=== PATIENT | male | born 1965 | race Caucasian/White ===

== ENCOUNTER 2021-10-09 21:56 | Emergency (ER) | payer OTHER, SELFPAY ==
--- NOTE | ~2021-10-09 | CT_ITS ---
EXAMINATION: CT brain wo con DATE: 10/10/2021 00:42 INDICATION: Confusion and drowsiness TECHNIQUE: Computed tomography (CT) of the head was performed without intravenous contrast. The dose- length product was 681.00 mGy-cm. Automated exposure control and iterative reconstruction technique w ere employed. COMPARISON: None FINDINGS: Brain parenchymal volume is normal for age. There are scattered mild periventricular and howard bcortical white matter changes, most likely related to small vessel ischemic disease (microangiopathy ). No ventriculomegaly or midline shift. Basilar cisterns are patent. There is mild right maxillary s inus disease, likely chronic. No air-fluid levels. Mastoids are pneumatized. No depressed skull fract ures. IMPRESSION: 1. No acute intracranial abnormality. 2: Chronic right maxillary sinus disease. 3: Chronic age-related findings. Reviewed, dictated and finalized at location A. GERMAN
[2021-10-09 22:22] VITALS: BP 118/64; PULSE 66; RESP 14; TEMP 35.9; O2SAT 95
[2021-10-09 22:39] LABS: Basophils Absolute Auto 0.1 K/mm3 (0.0-0.1); Basophils Percent Auto 0.6 % (0.2-1.2); Eosinophils Absolute Auto 0.3 K/mm3 (0-0.3); Hematocrit 45.8 % (42.0-52.0); Hemoglobin 15.1 g/dL (14.0-18.0); Immature Granulocyte Absolute 0.11 K/mm3 (0.00-0.031); Immature Granulocyte Percent A 0.8 % (0-0.5); Lymphocytes Absolute Auto 3.18 K/mm3 (0.9-3.2); Lymphocytes Percent Auto 23.7 % (18.3-44.2); Mean Corpuscular Hemoglobin 27.7 pg (26-34); Mean Platelet Volume 10.3 fl (7.4-10.4); Monocytes Absolute Auto 1.1 K/mm3 (0.1-0.6); Monocytes Percent Auto 8.4 % (2.6-8.5); Neutrophils Absolute Auto 8.6 K/mm3 (1.3-6.7); Neutrophils Percent Auto 64.5 % (45.5-73.1); Platelet Count Result 326 k/mm3 (150-375); Red Blood Count 5.45 M/mm3 (4.6-6.20); Red Cell Distribution Width 15.8 % (11.5-14.5); White Blood Count 13.4 K/mm3 (4.5-10.0)
[2021-10-09 22:47] VITALS: O2SAT 93
[2021-10-09 22:52] LABS: Alanine Aminotransferase 20 U/L (4-50); Albumin Level 4.4 g/dL (3.5-5.1); Alkaline Phosphatase 104 U/L (38-126); Anion Gap 12 mmol/L (8-16); Aspartate Amino Transferase 24 U/L (17-59); Bilirubin,Total 0.4 mg/dL (0.2-1.3); Blood Urea Nitrogen 20 mg/dL (9-20); Carbon Dioxide 22 mmol/L (22-30); Chloride 104 mmol/L (98-107); Estimated CRCL calculation 106 ml/min; Estimated Glomerular Filt Rate > 60; Glucose 161 mg/dL (65-110); Potassium 4.2 mmol/L (3.4-5.0); Sodium 138 mmol/L (137-145)
[2021-10-09 23:00] VITALS: PULSE 71; RESP 19
[2021-10-09 23:01] VITALS: BP 107/61; PULSE 77; RESP 17; O2SAT 100
--- NOTE | 2021-10-09 23:01 | ED.GENADULT ---
HPI - General Adult General Chief complaint: Recheck/Abnormal Lab/Rx Stated complaint: hypoglycemic episode Time Seen by Provider: 10/09/21 22:17 History of Present Illness HPI narrative: 55-year-old male presents to the emergency room with complaints of abnormal lab work. Patient is a diabetic. History given to me by patient and patient's . Patient's states that patient has been self-medicating with insulins without checking his blood sugar. Patient preweeks ago his primary care physician added regular insulin to his diabetic medication cocktail. Patient states that he has been checking his blood sugars prior to giving himself regular insulin. Patient is able to tell me that his NPH insulin is recently gone from 100 to 125 units daily. tells me that patient is not checking his blood sugar prior to giving himself regular insulin. Related Data Allergies Allergy/AdvReac Type Severity Reaction Status Date / Time chlorhexidine Allergy Unknown Verified 10/09/21 23:45 Penicillins Allergy Unknown Verified 10/09/21 23:45 Review of Systems Review of Systems: CONSTITUTIONAL: Denies fever, chills, or sweats. EYES: Denies visual changes, redness, or discharge. ENT: Denies rhinorrhea, congestion, sore throat, or otalgia. CARDIOVASCULAR: Denies chest pain, palpitations, or edema. RESPIRATORY: Denies cough or dyspnea. GASTROINTESTINAL: Denies abdominal pain, nausea, vomiting, or diarrhea. GENITOURINARY: Denies dysuria or hematuria. SKIN: Denies rash or itching. MUSCULOSKELETAL: Denies back pain, joint pain, or myalgia. NEUROLOGIC: Denies headache, numbness, dizziness, or weakness. PSYCHIATRIC: Denies anxiety or depression. [facility] Past Medical History Medical History (Updated 10/10/21 @ 01:32 by Serge Black, BACTERIOLOGY PROFESSOR) Diabetes 1.5, managed as type 2 Dyslipidemia (high LDL; low HDL) Hypertension Exam Narrative: GENERAL: Well-appearing, obese, somnolent. HEAD: Normocephalic, atraumatic. EYES: PERRLA and EOMI. ENT: Nares clear, no rhinorrhea or epistaxis. Mucous membranes moist. Oropharynx without tonsillar hypertrophy exudate or other lesions. Bilateral TMs pearly carranza nonbulging NECK: Supple. No adenopathy or masses. No carotid bruits or JVD CHEST: Clear to auscultation. No respiratory distress. No wheezes rales or rhonchi HEART: Regular rate and rhythm. No murmur heard. Normal peripheral pulses. ABDOMEN: Soft, nontender, nondistended, normal active bowel sounds. EXTREMITIES: Normal range of motion. No edema. SKIN: Warm, dry, no rash. NEURO: No focal deficits. Alert and oriented x3. PSYCH: Normal mood and affect. Course Course Emergency Course: 55-year-old patient presented to the emergency room with complaints of labile blood sugars while at home. Multiple fingerstick glucoses demonstrated that his sugars were 1 50-1 80. A1c demonstrated a result of 7.0. Patient continues to be somnolent. On further interview with his patient has a history of daytime sleepiness and sleep apnea at night. Will recommend patient follow-up with primary due to labile blood sugars. Will also recommend patient be evaluated by a sleep study. Vital Signs Vital signs: Vital Signs Temperature 35.9 C L 10/09/21 22:22 Pulse Rate 66 10/09/21 22:22 Respiratory Rate 14 10/09/21 22:22 Blood Pressure 118/64 10/09/21 22:22 Pulse Oximetry 95 10/09/21 22:22 Temperature 35.9 C L 10/09/21 22:22 Pulse Rate 66 10/09/21 22:22 Respiratory Rate 14 10/09/21 22:22 Blood Pressure 118/64 10/09/21 22:22 Pulse Oximetry 95 10/09/21 22:22 Medical Decision Making MDM Narrative Medical decision making narrative: 55-year-old patient presented to the ER with complaints of labile blood sugars. Blood sugars during the course of his ER stay ranged anywhere from 1 50-1 80. A1c was 7.0. Patient was somnolent but easily arousable to answer questions appropriately. Will recommend patient get a sleep study for his presumed
[2021-10-09 23:25] VITALS: PULSE 83; RESP 16; O2SAT 99
[2021-10-09 23:25] LABS: Glucose Point of Care 180 mg/dl (65-105)
[2021-10-09 23:30] VITALS: PULSE 78; RESP 15; O2SAT 94
[2021-10-09 23:38] LABS: Add Urine Microscopic? YES; Appearance Urine Clear (Clear); Bilirubin Urine Negative (Negative); Blood Urine Negative (Negative); Color Urine Yellow (Yellow); Glucose Urine UA 3+ mg/dL (Negative); Ketones Urine Negative (Negative); Leukocyte Esterase Ur Negative LEU/UL (Negative); Mucus Urine Rare /lpf; Nitrate Urine Negative (Negative); Protein Urine Negative (Negative); RBC Urine 0-2 /hpf (0-2); Squamous Epithelial Cell Urine Rare /hpf (Few); Urobilinogen Urine Negative mg/dL (<2.0); WBC Urine 0-3 /hpf
[2021-10-09 23:39] LABS: Specific Grav Ur 1.032 (1.001-1.035)
[2021-10-09] MEDS: SODIUM CHLORIDE 0.9% IV 1,000 ML 999 ML IV CONT (23:41)
[2021-10-10] VITALS (12 sets, daily range): BP systolic 73–111; BP diastolic 38–53; PULSE 56–72; RESP 13–21; TEMP 36.2; O2SAT 92–100
[2021-10-10 00:14] LABS: Glucose Point of Care 156 mg/dl (65-105)
== END 2021-10-10 01:30 | disposition home or self-care (01) ==
PROVIDERS: Emergency Provider Nurse Practitioner Family; PCP Family Medicine
DX: E11.65 Type 2 diabetes mellitus with hyperglycemia (principal); E78.5 Hyperlipidemia, unspecified; I10 Essential (primary) hypertension; Z79.4 Long term (current) use of insulin
CPT/HCPCS: 36415; 70450; 80053; 81001; 82948; 83036; 85025; 96360; 99284; J7030

== ENCOUNTER 2025-05-02 10:17 | Outpatient (CLI) | payer OTHER, SELFPAY ==
--- NOTE | ~2025-05-02 | MR_ITS ---
EXAMINATION: MR abdomen wo/w con DATE: 05/02/2025 12:21 INDICATION: Pancreatic mass. TECHNIQUE: Magnetic resonance imaging (MRI) of the abdomen was performed without and with 20 mL MultiHance intravenous contrast. COMPARISON: None. FINDINGS: There is diffuse hepatic steatosis. There is a 5 mm cyst in the liver. There are gallstones in the gallbladder, which is normal in size. There is a 1.0 cm mass in the spleen, most likely a benign mass such as a hemangioma or granulomatous disease. There is a 2.1 cm cyst in the body of the pancreas. The pancreatic duct is normal in caliber. The adrenal glands are normal. There are cysts in the kidneys measuring up to 7 mm on the right. There are no dilated loops of bowel. There are no pathologically enlarged lymph nodes. There is no free intraperitoneal fluid. IMPRESSION: 1. 2.1 cm low risk cystic lesion of the pancreas. The differential diagnosis includes pseudocyst, intraductal papillary mucinous neoplasm (IPMN), mucinous cystic neoplasm (MCN), serous cystadenoma, and neuroendocrine tumor. Abdomen MRI without and with contrast is recommended in 6 months. 2. Diffuse hepatic steatosis. Reviewed, dictated and finalized at location E. IMPRESSION: 1. 2.1 cm low risk cystic lesion of the pancreas. The differential diagnosis in cludes pseudocyst, intraductal papillary mucinous neoplasm (IPMN), mucinous cys tic neoplasm (MCN), serous cystadenoma, and neuroendocrine tumor. Abdomen MRI w ithout and with contrast is recommended in 6 months. 2. Diffuse hepatic steatosis.
== END 2025-05-02 10:18 | disposition home or self-care (01) ==
PROVIDERS: PCP Family Medicine; Visit Provider Family Medicine
DX: R19.09 Other intra-abdominal and pelvic swelling, mass and lump (principal); K76.0 Fatty (change of) liver, not elsewhere classified
CPT/HCPCS: 74183; A9577